=== PATIENT | male | born 1990 | race Caucasian/White ===

== ENCOUNTER → 2024-10-31 13:26 | Outpatient (REF) | payer MEDICARE, MEDICAID, SELFPAY | LOC: RAD 13:26 | PROVIDERS: ATTENDING PHYSICIAN Nurse Practitioner Family; FAMILY PHYSICIAN Family Medicine | DX: G40.909 Epilepsy, unspecified, not intractable, without status epilepticus (principal); M81.0 Age-related osteoporosis without current pathological fracture | CPT/HCPCS: 77080 ==